=== PATIENT | male | born 1990 | race African-American/Black ===

== ENCOUNTER 2018-05-19 04:34 | Emergency (ER) | payer OTHER ==
[~2018-05-19] VITALS: Ht 165.1 cm; Wt 56.7 kg
[~2018-05-19 04:34] MED LIST: ZOFRAN ODT4 MG PO
[2018-05-19 05:43] LABS: ABSOLUTE NEUTROPHILS 15.3 thou/uL (1.4-8.2); BASOPHILS 0.2 % (0.0-2.0); EOSINOPHILS 0.1 % (0.0-3.0); HEMATOCRIT 45.2 % (42.0-52.0); LYMPHOCYTES 8.2 % (24.0-44.0); MCH 29.8 pg (26.0-34.0); MCHC 33.2 g/dL (28.0-37.0); MCV 89.6 fL (80.0-100.0); MONOCYTES 5.8 % (1.0-8.0); PLATELET COUNT 365 thou/uL (150-400); POLYS 85.7 % (36.0-66.0); RBC 5.04 mil/uL (4.50-6.00); RDW 13.8 % (10.5-14.5); WBC 17.8 thou/uL (4.0-11.0)
[2018-05-19 05:52] LABS: CALCIUM 10.7 mg/dL (8.5-10.1); CREATININE 1.6 mg/dL (0.7-1.3); POTASSIUM 4.1 mmol/L (3.5-5.1)
[2018-05-19 05:58] LABS: ALBUMIN 4.9 g/dL (3.4-5.0); DIRECT BILIRUBIN 0.2 mg/dL (<0.1-0.3); TOTAL BILIRUBIN 0.8 mg/dL (<0.1-1.0); TOTAL PROTEIN 9.2 g/dL (6.4-8.2)
[2018-05-19] MEDS ORDERED: PROTONIX40 M1 PO (14:49)
[2018-05-19] MEDS ORDERED: ZOFRAN ODT4 MG PO (14:49)
[2018-05-19] MEDS ORDERED: CARAFATE 1 GM TA1 G1 PO (14:50)
== END 2018-05-19 15:17 | disposition left against medical advice (07) ==
LOC: ER 04:34
PROVIDERS: Emergency Medicine
DX: K92.2 Gastrointestinal hemorrhage, unspecified (principal); R11.2 Nausea with vomiting, unspecified; T42.4X5A Adverse effect of benzodiazepines, initial encounter; Z90.49 Acquired absence of other specified parts of digestive tract; Y92.89 Other specified places as the place of occurrence of the external cause